=== PATIENT | female | born 1985 | race Caucasian/White ===

== ENCOUNTER → 2017-08-04 | Outpatient (CLI) | payer OTHER ==
[~2017-08-04] MED LIST: BACTRIM DS TABL1 TA2 PO; NO MEDICATIONS; PYRIDIUM PO; VOLTAREN75 MG PO
--- NOTE | ~2017-08-04 | US24 ---
[facility] A Service [facility] RADIOLOGY TEXT RESULTS PATIENT: CATRACHO MAC LOCATION: [facility] : 81 UNIT #: [id number] AGE: [address]: RADHA SINGLETON APRN SEX: F ORDER DR: [id number] [place], [place] [address] [id number] O MR#: [id number] Acc #: [id number] NAME: CATRACHO MAC. : 1985 SEX: F STUDY DATE/TIME: 08/04/2017 10:02 UNIT: [facility] ROOM: STUDY DESCRIPTION: US Breast Unilateral Attending Physician: Radha Singleton Np Ordering Physician: Radha Singleton Np Primary Care Physician: Vanessa Sr M.D. MEDICAL IMAGING REPORT This report is preliminary unless electronic signature is present EXAM Left breast ultrasound INDICATIONS The left breast mass with redness and swelling and itching for the past 2 months. PROCEDURE Targeted chu-scale and Doppler imaging periareolar left breast area of clinical concern. Comparison concurrently performed diagnostic mammogram. FINDINGS/IMPRESSION Refer to separately dictated diagnostic mammogram for complete workup findings and recommendations. Patients over the age of 40 are entered into a reminder system with target due date for the next mammogram. A result letter will also be sent to the patient. BIRADS: 2, benign findings. Dictated by... Ori Meng M.D. THIS IS AN ELECTRONICALLY VERIFIED REPORT Ori Meng M.D. at 08/05/2017 7:02 AM EEKerri/rnr TD: 08/04/2017 22:25 JOB #: [id number] MEDICAL IMAGING REPORT [facility] A Service [facility] RADIOLOGY TEXT RESULTS PATIENT: CATRACHO MAC LOCATION: [facility] : 81 UNIT #: [id number] AGE: [address]: RADHA SINGLETON APRN SEX: F ORDER DR: Page 1 of 1 COPY
--- NOTE | ~2017-08-04 | MY24 ---
[facility] RADIOLOGY TEXT RESULTS PATIENT: CATRACHO MAC LOCATION: [facility] : 83 UNIT #: [id number] AGE: [address]: RADHA SINGLETON APRN SEX: F ORDER DR: [id number] [facility] [address] [place], [place] [address] [id number] O MR#: [id number] Acc #: [id number] NAME: CATRACHO MAC : 1985 SEX: F STUDY DATE/TIME: 08/04/2017 9:39 UNIT: [facility] ROOM: STUDY DESCRIPTION: [facility] DIAG W/ CAD UNI LT Attending Physician: Radha Singleton Np Ordering Physician: Radha Singleton Np Primary Care Physician: Vanessa Sr M.D. MEDICAL IMAGING REPORT This report is preliminary unless electronic signature is present EXAM Left digital diagnostic mammogram INDICATIONS Palpable left breast mass with redness and swelling and itching for the past 2 months. PROCEDURE CC, MLO and true lateral views of the left breast. Spot compression view of the left breast MLO projection. Images obtained on digital mammography unit. COMPARISON No prior mammograms available for direct comparison. Study is compared with a concurrently performed left breast ultrasound FINDINGS Heterogeneous fibroglandular density. There is poorly defined increased density in the central subareolar left breast, however a discrete mass is not clearly seen. No suspicious calcification. The concurrently performed left breast ultrasound shows soft tissue edema in the periareolar region. There is a poorly defined hypoechoic collection in the periareolar region at the 1 o'clock position that measures up to 1.7 cm. Mild surrounding hypervascularity. IMPRESSION 1. Findings most in keeping with mastitis in the periareolar region with a poorly defined, periareolar abscess. 2. Attempt was made to aspirate the abscess using ultrasound guidance, after this study. Please refer to that dictation for procedural details. 3. Recommend continued attention on followup after appropriate therapy [facility] RADIOLOGY TEXT RESULTS PATIENT: CATRACHO MAC LOCATION: [facility] : 81 UNIT #: [id number] AGE: [address]: RADHA SINGLETON APRN SEX: F ORDER DR: to document improvement. 4. Findings and recommendations were discussed with the patient. BIRADS 2. Findings were also discussed with the ordering office both prior to and following the attempted aspiration. Patients over the age of 40 are entered into a reminder system with target due date for the next mammogram. A result letter will also be sent to the patient. BIRADS: 2, benign findings. Dictated by... Ori Meng M.D. THIS IS AN ELECTRONICALLY VERIFIED REPORT Ori Meng M.D. at 08/05/2017 7:03 AM DAMARI/hussain TD: 08/04/2017 22:20 JOB #: [id number] MEDICAL IMAGING REPORT Page 1 of 1 COPY
--- NOTE | ~2017-08-04 | US19 ---
[facility] A Service [facility] RADIOLOGY TEXT RESULTS PATIENT: CATRACHO MAC LOCATION: [facility] : 81 UNIT #: [id number] AGE: [address]: RADHA SINGLETON APRN SEX: F ORDER DR: [id number] [facility] [address]. [place], [place] [address] [id number] O MR#: [id number] Acc #: [id number] NAME: CATRACHO MAC. : 1985 SEX: F STUDY DATE/TIME: 08/04/2017 11:08 UNIT: [facility] ROOM: STUDY DESCRIPTION: US Breast Cyst Aspiiration W I Attending Physician: Radha Singleton Np Ordering Physician: Radha Singleton Np Primary Care Physician: Vanessa Sr M.D. MEDICAL IMAGING REPORT This report is preliminary unless electronic signature is present EXAM Ultrasound-guided left breast aspiration. INDICATIONS Left breast abscess. PROCEDURE Following discussion of procedure including potential risk and benefit informed consent was obtained. The patient's questions were answered. Patient was brought to the ultrasound suite call to order time-out was performed. Preliminary imaging identifies the periareolar abscess. Skin was prepped and draped using full sterile technique. The skin overlying soft tissues were anesthetized with buffered lidocaine. The under ultrasound guidance an 18-gauge needle was advanced into the collection. Images were stored documenting appropriate needle tip placement. Only a tiny amount of questionably purulent material was obtained. Patient tolerated procedure well without immediate complication. IMPRESSION 1. Aspiration of a presumed left breast abscess, which yielded only a scant amount of questionably purulent material. This was sent to the laboratory for analysis. Recommend attention on followup after appropriate therapy to document resolution. Dictated by... Ori Meng M.D. THIS IS AN ELECTRONICALLY VERIFIED REPORT Ori Meng M.D. at 08/05/2017 7:02 AM EEKerri/hussain TD: 08/04/2017 22:33 [facility] A Service [facility] RADIOLOGY TEXT RESULTS PATIENT: CATRACHO MAC LOCATION: [facility] : 81 UNIT #: [id number] AGE: [address]: RADHA SINGLETON APRN SEX: F ORDER DR: HUMBERTO #: [id number] MEDICAL IMAGING REPORT Page 1 of 1 COPY
== END | disposition home or self-care (01) ==
LOC: CWCC 09:18
DX: N61.1 Abscess of the breast and nipple (principal); N63 Unspecified lump in breast
CPT/HCPCS: 76641; 87070; 87205; G0206